=== PATIENT | male | born 2000 | race Caucasian/White ===

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

== ENCOUNTER 2020-07-27 06:17 | Emergency (ER) | payer OTHER ==
[~2020-07-27] VITALS: Ht 180.3 cm; Wt 59.0 kg
[~2020-07-27 06:17] MED LIST changes: +ONDANSETRON ODT8 MG PO
--- OUTSIDE RECORDS SUMMARY | 2020-07-27 06:20 | XMS ---
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 Guidelines Source: [employer] [place] Guidelines Date: 04/09/2019 Care Coordination: Enrolled in mental health services with [employer].\T\nbsp; Please contact [employer] with mental health concerns.\T\nbsp; [place] [facility]: [phone]\T\nbsp; [place]: [phone]. E.D. VISIT COUNT (12 MO.) 1 [facility] TOTAL 1 NOTE: Visits indicate total known visits. ED/UCC VISIT TRACKING (12 MO.) 07/27/2020 06:18 ELADIO Sanchez OR TYPE: Emergency COMPLAINT: - SHAKEY,PAIN IN THIGH, INPATIENT VISIT TRACKING (12 MO.) No inpatient visits to display in this time frame [email or web address]
[2020-07-27] MEDS ORDERED: BUPROPION XL150 MG PO (06:33)
[2020-07-27] MEDS ORDERED: SERTRALINE HCL100 MG PO (06:33)
--- NOTE | 2020-07-27 20:41 | EKG ---
[facility] [address] [facility] [place], [place] [address] Signed Normal sinus rhythm Rightward axis Borderline ECG When compared with ECG of 31-MAR-2019 09:15, No significant change was found Confirmed by DENISSE ELIZONDO DO ([id number]) on 07/27/2020 8:40:53 PM Electronically Signed By: DENISSE ELIZONDO DO 07/27/202040 PATIENT NAME: MARILYN SULLIVAN Electrocardiogram DATE OF : 00 PHYSICIAN: DENISSE ELIZONDO DO REPORT #: [id number] REPORT IS CONFIDENTIAL AND NOT TO BE RELEASED WITHOUT AUTHORIZATION
== END 2020-07-27 09:04 | disposition home or self-care (01) ==
LOC: ED 06:17
DX: F43.9 Reaction to severe stress, unspecified (principal); G47.00 Insomnia, unspecified; Z20.822 Contact with and (suspected) exposure to COVID-19; F17.200 Nicotine dependence, unspecified, uncomplicated; Z79.899 Other long term (current) drug therapy
CPT/HCPCS: 71045; 93005; 93010; 99285-25; C9803; U0003

== ENCOUNTER 2024-01-24 18:35 | Emergency (ER) | payer OTHER ==
[~2024-01-24] VITALS: Ht 180.3 cm; Wt 75.9 kg
[~2024-01-24 18:35] MED LIST changes: +BUPROPION XL150 MG PO; +SERTRALINE HCL100 MG PO
[2024-01-24 22:48] LABS: BASOPHILS 0.4 % (0-2); HEMATOCRIT 48.2 % (35.0-50.0); HEMOGLOBIN 15.8 g/dL (12.0-18.0); LYMPHOCYTES 21.8 % (24-44); MCH 27.7 (27-36); MCHC 32.8 g/dl (30-36); MCV 84.5 fl (81-99); MONOCYTES 5.8 % (0-12); PLATELET COUNT 276 K/uL (140-440); RDW 13.4 (10.5-15.0)
[2024-01-24 23:06] LABS: ALBUMIN 4.5 g/dL (3.4-5.0); ALBUMIN/GLOBULIN RATIO 1.41 (1.1-2.4); ANION GAP 10.2 (7-21); BILIRUBIN, TOTAL 0.5 ng/dL (0.2-1.0); BUN/CREATININE RATIO 11.92 (6.0-28.6); CALCIUM 9.4 mg/dL (8.5-10.1); CREATININE, SERUM 1.09 mg/dL (0.70-1.30); POTASSIUM 4.2 mmol/L (3.5-5.1); PROTEIN, TOTAL 7.7 g/dL (6.4-8.2)
[2024-01-25] MEDS ORDERED: MECLIZINE HCL25 MG PO (00:37)
[2024-01-25] MEDS ORDERED: TRANSDERM-SCOP1 EACH TD (00:37)
[2024-01-25] MEDS ORDERED: MECLIZINE HCL 25 MG TAB PO ONE (00:45)
[2024-01-25] MEDS ORDERED: SCOPOLAMINE 1 MG/3 DAYS PATCH 1 EACH TDSY TD ONE (00:45)
[2024-01-25 00:58] VITALS: BP 138/89
== END 2024-01-25 01:00 | disposition home or self-care (01) ==
LOC: ED 18:35
PROVIDERS: Emergency Medicine
DX: R51.9 Headache, unspecified (principal); R42 Dizziness and giddiness; F17.200 Nicotine dependence, unspecified, uncomplicated
CPT/HCPCS: 36415; 70450; 80053; 85025; A9270